=== PATIENT | male | born 1985 | race Caucasian/White ===

== ENCOUNTER 2025-04-30 19:29 | Emergency (ER) | payer OTHER, SELFPAY ==
[2025-04-30 19:52] VITALS: BP 130/89; PULSE 70; RESP 18; TEMP 36.5; O2SAT 100; BMI 27.4
--- NOTE | 2025-04-30 20:58 | ED_ITS ---
HPI - URI/Sore Throat General Chief Complaint: Upper Respiratory Symptoms Stated Complaint: poss covid Time Seen by Provider: 04/30/25 20:48 Source: patient Mode of arrival: Ambulatory History of Present Illness HPI Narrative: Patient is a 39-year-old male history of asthma presenting today with upper respiratory like symptoms. He reports it both he and his girlfriend have COVID. He has had body aches fever chills. He is mostly concerned because he is almost out of his albuterol nebulizer medication he still has a couple puffs left on his inhaler but that is getting close to. No significant shortness of breath or wheezing at this time he just does not want to run out. Related Data Previous Rx's ?Medication ?Instructions ?Recorded albuterol sulfate 2.5 mg/0.5 mL 5 mg inhalation Q6H RI N shortness 04/30/25 solution for nebulization of breath or wheezing #30 ea Allergies Allergy/AdvReac Type Severity Reaction Status Date / Time No Known Drug Allergies Allergy Verified 04/30/25 19:51 Patient History Social History Smoking Status: Never smoker Smoking Status: Never smoker Exam Initial Vital Signs Initial Vital Signs: Vital Signs Temperature 97.7 F 04/30/25 19:52 Pulse Rate 70 04/30/25 19:52 Respiratory Rate 18 04/30/25 19:52 Blood Pressure 130/89 04/30/25 19:52 Pulse Oximetry 100 04/30/25 19:52 Oxygen Delivery Method Room Air 04/30/25 19:52 GENERAL: Alert very well nontoxic well-appearing 39-year-old male and in no acute distress. HEENT: Head atraumatic,EOMI, pupils reactive, face symmetric, moist mucous membranes CARDIOVASCULAR: Regular rate and rhythm without murmurs, rubs or gallops. RESPIRATORY: Breath sounds equal bilaterally, no wheezes rales or rhonchi. No respiratory distress no tachypnea ABDOMEN: Soft, nontender. Normoactive bowel sounds all 4 quadrants. No guar ding or rebound. EXTREMITIES: Normal range of motion, no clubbing or edema. Neurovascularly intact NEUROLOGICAL: Alert and oriented x4.Normal gait and speech. Cranial nerves II through XII grossly intact. SKIN: Warm, dry, no laceration, no petechiae, no rashes or lesions. Course Orders Ordered: Discontinued Medications Albuterol (Albuterol Hfa Prepack) 1 box MISC DIRECTED ONE Stop: 04/30/25 20:59 Last Admin: 04/30/25 21:17 Dose: 1 box Documented By: NAHID Vital Signs Vital signs: Vital Signs - 8 hr 04/30/25 19:52 04/30/25 21:25 Temperature 97.7 F 98.0 F Pulse Rate 70 69 Respiratory Rate 18 18 Blood Pressure 130/89 119/83 Pulse Oximetry 100 99 Oxygen Delivery Method Room Air MDM - URI/Sore Throat MDM Narrative Medical decision making narrative: Patient 39-year-old male history of asthma presenting to day with COVID-19 and need for refill. He appears well he has no sign of respiratory distress lung sounds are clear he speaks in full sentences. He really is just needing refill on his asthma medications. He is given prepack of the inhaler here Discharge Plan Departure Patient Disposition: Home Clinical Impression: COVID-19 Instructions: Coronavirus Disease 2019 Activity Restrictions/Additional Instructions: *You have been diagnosed with COVID-19 *What to do: Increase fluids as tolerated, Motrin as needed *Continue to take medications as directed Albuterol either nebulizer or inhaler every 4 hours only if needed for cough or shortness of breath. If needing more frequently then you need to be evaluated in the ED *Follow up with your primary care provider in 2-3 days or call [phone] *Return to ER if you should have increasing chest pain shortness of breath or any new, worsening or concerning symptoms Prescriptions: New albuterol sulfate 2.5 mg/0.5 mL solution for nebulization 5 mg inhalation Q6H PRN (Reason: shortness of breath or wheezing) Qty: 30 0RF Stand Alone Forms: Patient Portal/API
[2025-04-30] MEDS: ALBUTEROL HFA PREPACK 1 BOX MISC (21:17)
[2025-04-30 21:25] VITALS: BP 119/83; PULSE 69; RESP 18; TEMP 36.7; O2SAT 99
== END 2025-04-30 21:27 | disposition home or self-care (01) ==
PROVIDERS: Emergency Provider Emergency Medicine
DX: U07.1 COVID-19 (principal)
CPT/HCPCS: 99281; 99283

== ENCOUNTER 2025-05-30 07:18 | Emergency (ER) | payer OTHER, SELFPAY ==
[2025-05-30 07:30] VITALS: BP 122/81; PULSE 77; RESP 17; TEMP 36.6; O2SAT 99; BMI 27.4
--- NOTE | 2025-05-30 07:50 | ED_ITS ---
HPI - Skin/Abscess/Foreign Bdy General Chief complaint: Skin/Abscess/Foreign Body Stated complaint: Dizzy, Cyst on butt Time Seen by Provider: 05/30/25 07:42 Source: patient Mode of arrival: Ambulatory History of Present Illness HPI narrative: Patient here with girlfriend complaints of cyst at the sacral area, pilonidal cyst. Patient states this is not new lesion. Had assist a year ago and self- induced drainage at home, did not seek medical attention. Patient has had off and on inflammation and drainage from this site for the past year. Patient recently seen here a month ago for COVID. Patient complains of dizziness and nausea. He has had off and on drainage in the past week. Related Data Previous Rx's ?Medication ?Instructions ?Recorded albuterol sulfate 2.5 mg/0.5 mL 5 mg inhalation Q6H IL N shortness 04/30/25 solution for nebulization of breath or wheezing #30 ea doxycycline monohydrate 100 mg 100 mg PO BID #14 caps 05/30/25 capsule ondansetron 4 mg disintegrating 4 mg PO Q6H PRN nausea and 05/30/25 tablet vomiting #20 tabs Allergies Allergy/AdvReac Type Severity Reaction Status Date / Time No Known Drug Allergies Allergy Verified 05/30/25 07:31 Review of Systems Review of Systems Narrative: GENERAL: Negative chills, fatigue, malaise, fever, sweats. HEENT: Negative sinus pain, ear pain, sore throat RESPIRATORY: Negative dyspnea, cough CARDIOVASCULAR: Negative chest pain, palpitations GASTROINTESTINAL: Negative vomiting, nausea, abdominal pain : Negative dysuria, frequency, hematuria MUSCULOSKELETAL: Negative muscle or bony pain SKIN: Negative rash positive lesion NEUROLOGIC: Negative weakness, numbness ROS Unobtainable: All systems reviewed & are unremarkable except as noted in HPI and below Patient History Social History Smoking Status: Never smoker Smoking Status: Never smoker Exam Narrative Exam Narrative: GENERAL: in no distress, not toxic not dyspneic HEAD: Normocephalic. GASTROINTESTINAL: Abdomen soft, non-tender, at the sacral area/there is pilonidal cyst. No active drainage. There is fluctuance and mild tenderness. No overlying induration or erythema. Edematous area is 2 cm in diameter slightly right of midline. NEURO: AOx4. Clear speech SKIN: Warm and dry PSYCH: Not anxious, is cooperative Initial Vital Signs Initial Vital Signs: Vital Signs Temperature 97.9 F 05/30/25 07:30 Pulse Rate 77 05/30/25 07:30 Respiratory Rate 17 05/30/25 07:30 Blood Pressure 122/81 05/30/25 07:30 Pulse Oximetry 99 05/30/25 07:30 Oxygen Delivery Method Room Air 05/30/25 07:30 Procedures Abscess I/D I&D #1: Time of procedure: 09:02 Site: other (Pilonidal) Side (if applicable): right Sedation/analgesia: none Local Anesthetic: lidocaine 2% and with epi Amount of anesthesia used (mL): 2 Technique: needle aspiration Amount of fluid expressed (mL): 0 Packing used?: none Course Orders Ordered: ED Orders 05/30/25 07:49 CT abdomen pelvis w con Stat 05/30/25 08:05 Complete Blood Count AUTO DIFF Stat Comprehensive Metabolic Panel Stat Discontinued Medications Doxycycline Hyclate (Doxycycline Hyclate 100 Mg Tablet) 100 mg PO NOW ONE Stop: 05/30/25 09:01 Last Admin: 05/30/25 09:12 Dose: 100 mg Documented By: ADRIENNE Sodium Chloride (Normal Saline 0.9%) 1,000 mls @ 1,000 mls/hr IV BOLUS ONE Stop: 05/30/25 08:47 Last Infusion: 05/30/25 10:17 Dose: Infused Documented By: Admin: 05/30/25 08:55 Dose: 1,000 mls/hr Documented By: RADAH Lidocaine/Epinephrine (Lidocaine 2% W/Epi Inj 10 Ml Vial) 10 ml INJ NOW ONE Stop: 05/30/25 08:50 Last Admin: 05/30/25 08:53 Dose: 10 ml Documented By: RADHA Ondansetron HCl (Ondansetron 4 Mg/2 Ml Inj) 4 mg IV NOW ONE Stop: 05/30/25 07:49 Last Admin: 05/30/25 08:55 Dose: 4 mg Documented By: RADHA Vital Signs Vital signs: Vital Signs - 8 hr 05/30/25 07:30 05/30/25 10:12 Temperature 97.9 F Pulse Rate 77 66 Respiratory Rate 17 12 Blood Pressure 122/81 105/70 Pulse Oximetry 99 98 Oxygen Delivery Method Room Air Room Air MDM - Skin/Abscess/Foreign Bdy Lab Data 05/30/25 08:05 05/30/25 08:05 Labs: Lab Results 05/30/25 Range/Units 08:05 WBC 8.6 (4.5-11.0) X10^3/uL RBC 4.93 (4.5-5.9) X10^6/uL Hgb 14.8 (13.5-17.5) g/dL Hct 44.1 (41-53) % MCV 89.5 (80-100) fL MCH 30.1 (26-34) PG MCHC 33.6 (30-36) % RDW 13.2 (11.6-14.8) % Plt Count 326 (150-400) X10^3/uL Neut % (Auto) 68.0 (50-75) % Lymph % (Auto) 22.1 L (25-40) % [facility] % (Auto) 6.7 (3-14) % Eos % (Auto) 2.5 (2-4) % Baso % (Auto) 0.7 (0-2) % Neut # (Auto) 5800 (0842-9345) /uL Lymph # (Auto) 1900 (8797-3738) /uL [facility] # (Auto) 600 (0-900) /uL Eos # (Auto) 200 (0-450) /uL Baso # (Auto) 100 (0-100) /uL Sodium 136 L (137-145) mmol/L Potassium 4.5 (3.4-5.1) mmol/L Chloride 100 (98-107) mmol/L Carbon Dioxide 26 (22-32) mmol/L BUN 13 (9-20) mg/dL Creatinine 0.89 (0.66-1.25) mg/dL Estimated GFR > 60 (>60) mL/min BUN/Creatinine Ratio 14.6 (6-22) Glucose 101 H (70-99) mg/dL Calcium 9.3 (8.4-10.2) mg/dL Total Bilirubin 1.8 H (0.2-1.3) mg/dL AST 31 (17-59) IU/L ALT 20 (<50) IU/L Alkaline Phosphatase 54 (38-126) U/L Total Protein 8.2 (6.3-8.2) g/dL Albumin 4.9 (3.5-5.0) g/dL Globulin 3.3 (1.7-4.1) g/dL Albumin/Globulin Ratio 1.5 (1.0-2.8) Imaging Data CT scan - abdomen/pelvis: Radiologist's Impression: [address] [address] [address] Scan Report Signed Patient: Radha Yoder MR#: [id number] : 1985 Acct:[id number] Age/Sex: 39 / M Date of Service: 05/30/25 Loc: ED Accession Number: [id number] Procedure: CT abdomen pelvis w con Ordering Provider: Luke Welch MD PROCEDURE: CT ABDOMEN PELVIS W CON INDICATIONS: Pilonidal cyst. TECHNIQUE: After the administration of intravenous contrast, axial sections acquired from the lung bases to the pubic symphysis. Coronal and sagittal reformats were performed. For radiation dose reduction, the following was used: automated exposure control, adjustment of mA and/or kV according to patient size. COMPARISON: None. FINDINGS: Image quality: Diagnostic. Lower Chest: Small hiatal hernia. Normal heart size. Lung bases are clear. ABDOMEN: Liver: No solid mass. Gallbladder: No radiopaque gallstones or wall thickening. Biliary ducts: No biliary dilation. Pancreas: No ductal dilation. Spleen: Size is within normal limits. Adrenal Glands: No adrenal nodules. Kidneys and Ureters: No hydronephrosis. No solid mass. No complex renal cystic lesion which requires follow up. Stomach and Bowel: Normal colonic caliber, without significant wall thickening. Peritoneum: No abnormal intraperitoneal fluid. No free air. Ventral Wall: No significant ventral hernia. Abdominal Nodes: No retroperitoneal or mesenteric adenopathy by size criteria. Vessels: Aorta and inferior vena cava are normal in size. 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 Reference sagittal image 62 of series 4. PELVIS: Pelvic Organs: Unremarkable. Bladder: No bladder wall thickening, accounting for underdistention. Pelvic Nodes: No enlarged lymph nodes. Miscellaneous: No inguinal hernias are seen. There is a small subcutaneous likely cystic fluid collection to the right of midline in the subcutaneous tissues at the superior aspect of the cleft between the buttocks. It is just below the tip of the coccyx. It measures 2.6 x 0.9 x 0.9 cm. There is minimal inflammatory change in the adjacent fat. Reference axial image 130 of series 2 and sagittal image 66 of series 4. Bones: No aggressive osseous abnormality. IMPRESSION: 1. Small pilonidal cyst. 2. No other acute findings. 3. Small hiatal hernia. 4. 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 Dictated by: Emmett Neewll M.D. on 05/30/2025 at 8:27 Approved by: Emmett Newell M.D. on 05/30/2025 at 8:33 [facility] Narrative Medical decision making narrative: Patient here with girlfriend complaints of cyst at the sacral area, pilonidal cyst. Patient states this is not new lesion. Had assist a year ago and self- induced drainage at home, did not seek medical attention. Patient has had off and on inflammation and drainage from this site for the past year. Patient recently seen here a month ago for COVID. Patient complains of dizziness and nausea. He has had off and on drainage in the past week. MDM After history and exam, CBC CMP normal saline Zofran CT abdomen pelvis Differential considered: Includes but not limited to pilonidal cyst fistula cutaneous abscess Medical records reviewed: No recent visit for this complaint, ER visit here April 30, 2025 per COVID Lab Test results independently reviewed as above. Pertinent findings: WBC 8.6 Imaging studies independently reviewed: CT abdomen pelvis likely pilonidal cyst Consultations: None indicated at this time Re-evaluations: 9:04 a.m.. Updated patient results. He tolerated attempt for aspiration of cyst very well. Referral for General surgery provided. Work note provided. Antibiotics have been started. They desire discharge home. Return precautions reviewed with them. No incision drainage indicated at this time. However if worsening it may require incision and drainage. Discussion: Appropriate for discharge home. IV contrast used for CT imaging. Needle aspiration attempts made on cyst and no fluid returned with 18 gauge needle. 2 x 2 dressing placed with paper tape. No bleeding at time of discharge. Return precautions reviewed with patient and partner. They state they will be able to find a family doctor to follow up with. Work note provided. Antibiotics started. Pain control. They desire discharge home. Diagnosis: Pilonidal cyst Discharge Plan Departure Patient Disposition: Home Clinical Impression: Chronic recurrent pilonidal cyst Instructions: DI for Pilonidal Cyst Drainage or Removal Activity Restrictions/Additional Instructions: Work note has been provided for you. Please continue with home Sitz baths for comfort. May continue Tylenol or ibuprofen for pain. Antibiotics have been started. Prescription for antibiotic has been sent to your pharmacy to continue. Please call provided general surgery office for follow up for any further procedures. Return if worse if any questions or concerns. Prescriptions: New doxycycline monohydrate 100 mg capsule 100 mg PO BID Qty: 14 0RF ondansetron 4 mg tablet,disintegrating 4 mg PO Q6H PRN (Reason: nausea and vomiting) Qty: 20 0RF No Action albuterol sulfate 2.5 mg/0.5 mL solution for nebulization 5 mg inhalation Q6H PRN (Reason: shortness of breath or wheezing) Qty: 30 0RF Referrals: Roberto Carlos Jefferson MD [Physician, General Surgery] Stand Alone Forms: Patient Portal/API, Work Release Note
[2025-05-30 08:16] LABS: Add Manual Diff / Slide Review NO; Hematocrit 44.1 % (41-53); Hemoglobin 14.8 g/dL (13.5-17.5); Lymphocytes Absolute Auto 1900 /uL (1100-4500); Mean Corpuscular HGB Conc 33.6 % (30-36); Mean Corpuscular Hemoglobin 30.1 PG (26-34); Mean Corpuscular Volume 89.5 fL (80-100); Platelet Count 326 X10^3/uL (150-400)
[2025-05-30 08:33] LABS: Alanine Aminotransferase 20 IU/L (<50); Albumin 4.9 g/dL (3.5-5.0); Albumin Globulin Ratio 1.5 (1.0-2.8); Alkaline Phosphatase 54 U/L (38-126); Blood Urea Nitrogen 13 mg/dL (9-20); Calcium 9.3 mg/dL (8.4-10.2); Carbon Dioxide 26 mmol/L (22-32); Chloride 100 mmol/L (98-107); Estimated Glomerular Filt Rate > 60 mL/min (>60); Globulin 3.3 g/dL (1.7-4.1); Glucose 101 mg/dL (70-99); HEMOLYSIS 16 (0-50); Potassium 4.5 mmol/L (3.4-5.1); Sodium 136 mmol/L (137-145); Total Protein 8.2 g/dL (6.3-8.2)
[2025-05-30] MEDS: LIDOCAINE 2% W/EPI INJ 10 ML VIAL INJ (08:53)
[2025-05-30] MEDS: SODIUM CHLORIDE 0.9% 1,000 ML 1000 ML IV (08:55)
[2025-05-30] MEDS: ONDANSETRON 4 MG/2 ML INJ IV (08:55)
[2025-05-30] MEDS: DOXYCYCLINE HYCLATE 100 MG TABLET PO (09:12)
[2025-05-30 10:12] VITALS: BP 105/70; PULSE 66; RESP 12; O2SAT 98
== END 2025-05-30 10:26 | disposition home or self-care (01) ==
PROVIDERS: Emergency Provider Emergency Medicine
DX: L05.01 Pilonidal cyst with abscess (principal); R42 Dizziness and giddiness; R11.0 Nausea
CPT/HCPCS: 10060; 36415; 74177; 80053; 85025; 96361; 96374; 99284; J2405; J7030; Q9967

== ENCOUNTER 2025-07-19 11:43 | Emergency (ER) | payer OTHER, SELFPAY ==
[2025-07-19 11:49] VITALS: BP 123/78; PULSE 83; RESP 18; TEMP 37; O2SAT 98; BMI 25.8
--- NOTE | 2025-07-19 11:57 | ED.RECABL ---
HPI - Recheck/Abnormal Lab/Rx General Chief Complaint: Recheck/Abnormal Lab/Rx Stated Complaint: sent from [facility] for inhaler and neb treatment Time Seen by Provider: 07/19/25 11:44 Source: patient Mode of arrival: Ambulatory History of Present Illness HPI narrative: Mr. Yoder is a pleasant 39-year-old male with a past medical history post COVID asthma who presents to the emergency department for medication refill. Patient states that they currently are unable to see a primary care doctor so they went to the walk-in clinic to get a refill of the albuterol nebulizer treatment and the albuterol inhaler however the walk-in clinic sent him to the ER as they did not accept her insurance. Patient states that they are not really having any new or worsening symptoms but they do notice that things such as mold, weather change and smoking make their wheezing worse. They quit tobacco 8 years ago but patient did smoke 1 of his 's cigarettes this morning which did trigger some exacerbation. At this time they are not experiencing any coughing, shortness of breath, wheezing, chest pain, fevers, chills or flu-like symptoms. They are requesting refill of an albuterol inhaler and a nebulizer albuterol refill, specifically the type that does not need to be diluted. Related Data Previous Rx's ?Medication ?Instructions ?Recorded albuterol sulfate 2.5 mg/0.5 mL 5 mg inhalation Q6H PRN shortness 04/30/25 solution for nebulization of breath or wheezing #30 ea doxycycline monohydrate 100 mg 100 mg PO BID #14 caps 05/30/25 capsule ondansetron 4 mg disintegrating 4 mg PO Q6H PRN nausea and 05/30/25 tablet vomiting #20 tabs albuterol sulfate 2.5 mg/3 mL 2.5 mg (3 mL) inhalation Q6-8H PRN 07/19/25 (0.083 %) solution for nebulization shortness of breath or wheezing #75 mL albuterol sulfate 90 mcg/actuation 1 inh inhalation Q6H PRN shortness 07/19/25 aerosol inhaler of breath or wheezing #6.7 grams Allergies Allergy/AdvReac Type Severity Reaction Status Date / Time No Known Drug Allergies Allergy Verified 05/30/25 07:31 Review of Systems Review of Systems ROS Unobtainable: All systems reviewed & are unremarkable except as noted in HPI and below Patient History Social History Smoking Status: Former smoker Smoking Status: Former smoker Exam Narrative Exam Narrative: GENERAL: 39 year old patient appears stated age. Well-developed patient, in no acute distress. HEAD: Atraumatic. Normocephalic. EYES: No scleral icterus. No injection or drainage. ENT: Nose without bleeding, purulent drainage. Airway patent. NECK: Trachea midline. Cervical ROM intact. CARDIOVASCULAR: Regular rate and rhythm. RESPIRATORY: ?Nonlabored respirations. ?Speaking in clear, full sentences. ?Clear to auscultation. Breath sounds equal bilaterally. No wheezes, rales, or rhonchi. ? NEURO: AOx3. ?Clear speech. ?Moves all 4 extremities appropriately. SKIN: No rash or erythema of visible areas Initial Vital Signs Initial Vital Signs: Vital Signs Temperature 98.6 F 07/19/25 11:49 Pulse Rate 83 07/19/25 11:49 Respiratory Rate 18 07/19/25 11:49 Blood Pressure 123/78 07/19/25 11:49 Pulse Oximetry 98 07/19/25 11:49 Oxygen Delivery Method Room Air 07/19/25 11:49 Course Vital Signs Vital signs: Vital Signs - 8 hr 07/19/25 11:49 Temperature 98.6 F Pulse Rate 83 Respiratory Rate 18 Blood Pressure 123/78 Pulse Oximetry 98 Oxygen Delivery Method Room Air MDM - Recheck/Abnormal Lab/Rx Medical Records Attestation: I reviewed the patient's medical records. [facility] Narrative Medical decision making narrative: 39-year-old male with a past medical history post COVID asthma who presents to the emergency department for medication refill. Differential diagnosis includes but is not limited to medication refill, asthma, bronchitis, etc. On exam patient is in no acute distress, nontoxic-appearing, all vital signs within normal limits. Lungs are clear to auscultation bilaterally. Patient is not currently having symptoms but would like refill of albuterol nebulizer treatment and albuterol inhaler. Both of these medications were sent to the pharmacy of choice. I recommend that patient follow up with the PCP for further evaluation and management. Discussed ER return precautions. Patient verbalized understanding of all information agreeable with the plan. They are stable for discharge home. Discharge Plan Departure Patient Disposition: Home Clinical Impression: Encounter for medication refill Instructions: DI for Asthma -- Adult Activity Restrictions/Additional Instructions: Dear Mr. Yoder, Thank you for coming to the emergency department. Today you were evaluated for the need for medication refill. I have sent an albuterol inhaler with refill to your pharmacy in addition to nebulizer treatments. Please call the ER if a change to these medications need to be made for you today, and ask for Shefali. Please follow up with a primary care doctor as soon as possible for further evaluation and management. Please return to the ER if you develop any new or worsening symptoms. Please follow up with your primary care doctor within the next 2-3 days for ER follow-up. (If you do not have a PCP you can call [phone]. ?to schedule an appointment with an [facility] Primary Care Provider) IF YOU DEVELOP ANY NEW OR WORSENING SYMPTOMS, RETURN TO THE ER! Please read the attached instructions, they highlight more specific treatments and interventions for you at home. Thank you for letting me participate in your care, Shefali Lackey PA-C Prescriptions: New albuterol sulfate 2.5 mg /3 mL (0.083 %) solution for nebulization 2.5 mg inhalation Q6-8H PRN (Reason: shortness of breath or wheezing) Qty: 75 0RF albuterol sulfate 90 mcg/actuation HFA aerosol inhaler 1 inh inhalation Q6H PRN (Reason: shortness of breath or wheezing) Qty: 6.7 2RF No Action albuterol sulfate 2.5 mg/0.5 mL solution for nebulization 5 mg inhalation Q6H PRN (Reason: shortness of breath or wheezing) Qty: 30 0RF doxycycline monohydrate 100 mg capsule 100 mg PO BID Qty: 14 0RF ondansetron 4 mg tablet,disintegrating 4 mg PO Q6H PRN (Reason: nausea and vomiting) Qty: 20 0RF Stand Alone Forms: Patient Portal/API
--- NOTE | 2025-07-19 12:10 | PC.NURSE ---
New to area, has not established primary care. Seen and evaluated in Triage by provider. Appears well, no acute distress. Speaking in full sentences.
== END 2025-07-19 12:11 | disposition home or self-care (01) ==
PROVIDERS: Emergency Provider Physician Assistant
DX: Z76.0 Encounter for issue of repeat prescription (principal); J45.909 Unspecified asthma, uncomplicated; Z87.891 Personal history of nicotine dependence
CPT/HCPCS: 99281